=== PATIENT | male | born 1970 | race Caucasian/White ===

== ENCOUNTER 2018-06-09 20:50 | Emergency (ER) | payer SELFPAY ==
[~2018-06-09] VITALS: Ht 160 cm; Wt 68.2 kg
[2018-06-09 23:45] VITALS: BP 133/90
== END 2018-06-09 23:45 | disposition home or self-care (01) ==
LOC: ED 20:50
DX: F41.9 Anxiety disorder, unspecified (principal); E78.00 Pure hypercholesterolemia, unspecified